=== PATIENT | female | born 1990 | race Hispanic/Latino ===

== ENCOUNTER 2022-01-06 01:51 | Emergency (ER) | payer SELFPAY ==
[2022-01-06 06:02] LABS: Bilirubin Negative (Negative); Blood, Urine Trace (Negative); Clarity Extra Turbid (Clear); Glucose, Urine (Dipstick) Normal (Negative); Ketone, Urine Negative (Negative); Leukocyte Negative Leu/uL (Negative); Nitrite Negative (Negative); Protein, Urine (Dipstick) 30 mg/dL (Neg-Trace); Specific Gravity, Urine 1.037 (1.002-1.036); pH, Urine 5.5 (5.0-9.0)
[2022-01-06 06:07] LABS: RBC/HPF None Seen HPF (0-3); Squamous Epithelial 0-3 HPF (0-3); WBC/HPF 0-3 HPF (0-3)
[2022-01-06 06:12] LABS: Calcium Oxalate Crystals Rare HPF (None Seen)
[2022-01-06] MEDS ORDERED: Acetaminophen 500 MG TAB ONE (06:41)
== END 2022-01-06 07:58 | disposition home or self-care (01) ==
LOC: ERS 01:51
DX: O26.899 Other specified pregnancy related conditions, unspecified trimester (principal); R10.30 Lower abdominal pain, unspecified; Z3A.18 18 weeks gestation of pregnancy
CPT/HCPCS: 81003; 81015; 99284